=== PATIENT | female | born 1975 | race Caucasian/White ===

== ENCOUNTER 2017-05-24 16:05 | Emergency (ER) | payer BC, SELFPAY ==
[~2017-05-24] VITALS: Ht 152.4 cm; Wt 97.7 kg
[2017-05-24] MEDS ORDERED: traMADol 50 MG TAB PO ONE (18:45)
[2017-05-24] MEDS ORDERED: TRAM50TA2 PO (19:57)
[2017-05-24] MEDS ORDERED: traMADol 50 MG TAB (BULK 4 TAB ED) PO ONE (20:00)
[2017-05-24 20:18] VITALS: BP 127/86
--- NOTE | 2017-05-25 05:30 | REP ---
REASON FOR EXAM: History of 1 month old fracture. I have no priors for comparison. No acute fracture or destructive osseous lesion. The mortise is intact. There is casting material obscuring the fine bony detail. A hairline fracture could be obscured. Signed by Gonzalez Bustillos DO 05/28/2017 10:30 A
--- NOTE | 2017-05-25 05:32 | REP ---
REASON: Pain after trauma last month. There are no priors for comparison. There is overlying casting material which obscures the bony detail to such a degree a hairline fracture could be obscured. There is no evidence of an acute fracture. There is some soft tissue swelling which needs to be correlated clinically. IMPRESSION: The exam is limited as described above without definite evidence of an acute fracture. If the patient has had prior exams, they need to be obtained for comparison. I have no priors for comparison at this time. It should be stated that a well demarcated lucency is seen involving the anterior surface of the proximal navicula which appears old. Signed by Gonzalez Bustillos DO 05/28/2017 10:30 A
--- NOTE | 2017-05-25 05:34 | REP ---
REASON: Pain after trauma 1 month ago. There are no priors for comparison. FINDINGS: Five views of the lumbosacral spine show no acute fracture, dislocation or subluxation. The intervertebral disc spaces are symmetric and well maintained. There is no spondylolysis or spondylolisthesis. The pedicles are intact bilaterally and there is no destructive osseous lesion. IMPRESSION: Unremarkable lumbosacral spine series. Signed by Gonzalez Bustillos DO 05/28/2017 10:30 A
--- NOTE | 2017-05-25 05:34 | REP ---
REASON: Pain after trauma 1 month ago. FINDINGS: No acute fracture or destructive osseous lesion. Signed by Gonzalez Bustillos DO 05/28/2017 10:30 A
== END 2017-05-24 20:20 | disposition home or self-care (01) ==
LOC: M ED 16:05
DX: S90.32XA Contusion of left foot, initial encounter (principal); S30.0XXA Contusion of lower back and pelvis, initial encounter; W19.XXXA Unspecified fall, initial encounter; Y92.099 Unspecified place in other non-institutional residence as the place of occurrence of the external cause; Y93.9 Activity, unspecified; Y99.9 Unspecified external cause status; S92.355D Nondisplaced fracture of fifth metatarsal bone, left foot, subsequent encounter for fracture with routine healing; X58.XXXD Exposure to other specified factors, subsequent encounter; Y92.9 Unspecified place or not applicable; Z97.8 Presence of other specified devices; E66.01 Morbid (severe) obesity due to excess calories